=== PATIENT | female | born 1940 | race Caucasian/White ===

== ENCOUNTER 2016-05-06 14:10 | Inpatient (IN) | payer MEDICARE, BC ==
[2016-05-06 14:23] VITALS: BMI 27.3
--- NOTE | 2016-05-06 15:18 | EDPRACDOC ---
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 Medications: Home Medications Digoxin [Lanoxin, Digitek] 0.125 mg PO DAILY 03/08/15 Venlafaxine HCl [Effexor Xr] 150 mg PO DAILY 03/08/15 Albuterol Sulfate [Proventil Hfa] 1 - 2 puff INH Q4H PRN #1 each 03/10/15 Tramadol HCl [Ultram] 50 - 100 mg PO Q4-6H 05/06/16 Flecainide [Tambocor] 100 mg PO BID #60 tablet 05/09/16 Metoprolol Tartrate [Lopressor] 37.5 mg PO BID #60 tablet 05/09/16 Oxycodone Immediate Release [Oxycodone Immediate Release (OxyIR)] 5 mg PO Q4H PRN #20 tablet 05/09/16 Rivaroxaban [Xarelto] 20 mg PO DAILY #30 05/09/16 Allergies/Adverse Reactions: Allergies Allergy/AdvReac Type Severity Reaction Status Date / Time Sulfa (Sulfonamide Allergy Severe Difficulty Verified 05/06/16 15:10 Antibiotics) Breathing [Sulfa(Sulfonamide Antibiotics)] - History of Present Illness Onset: [employer] Duration: Minutes Presyncopal phase:: Reports: None (JUST DOES NOT FEEL WELL) Syncopal phase:: Reports: With standing Postsyncopal phase:: Reports: Rapid recovery Prehospital care: Reports: None History of: Reports: Atrial Fibrillation Associated Signs/Symptoms: Reports: Headache. Denies: Abdominal pain, GI Bleed , Diaphoresis, Diarrhea, Nausea, Palpitations, SOB, Vomiting, Vertigo ED Past Medical History - History Reviewed Yes Nurses notes reviewed and agree except as marked - Patient Medical History Cardiac History: Reports: Atrial Fibrillation, Hypertension, Hypercholesterolemia, Internal Defibrillator, Pacemaker Respiratory History: Reports: Pneumonia (Feb 2015). Denies: Asthma, COPD, Pulmonary Embolism GI/ History: Reports: Kidney Stones. Denies: Diverticulosis Musculoskeletal History: Reports: Arthritis, Osteoarthritis Psychological History: Denies: Depression, Substance Use Disorder Systemic History: Denies: Cancer Surgical History: Reports: Cholecystectomy, Tonsillectomy/Adnoidectomy - Family Medical History Reports: Stroke (MOTHER AND FATHER), Cardiac Disorders (MOTHER). Denies: Hypertension, Diabetes, Cancer - Social Medical History Smoking Status: Never smoker Social History: Denies: Other Substance Use EDM Review of Systems - Review of Systems ROS Negative Except as Marked: Yes All systems reviewed and were negative except as marked - Physical Exam Constitutional: No apparent distress, Alert (Awake), Other (SOMEWHAT VAGUE AND EVASIVE WITH QUESTIONS, BUT DAUGHTERS REPORT SHE IS AT BASELINE) Oriented to: Time, Person, Place Last recorded Vital Signs: Last Vital Signs Temp 97.8 F 05/06/16 14:15 Pulse 88 05/06/16 14:15 Resp 18 05/06/16 14:15 BP 135/55 L 05/06/16 14:15 Pulse Ox 93 05/06/16 14:15 Oxygen Pulse Oxygen Saturation 93 O2 Device Room Air Oxygen Flow Rate Fraction of Inspired Oxygen ( FIO2) - HEENT Head: Normal ( normocephalic) Eye Exam: Normal (PERRL, EOMI, Sclera white) Oropharynx: Normal (Pharynx:Moist without exudate,Gums-no swelling) Tympanic Membrane: Normal ENT EAC: Normal TMJ: Normal Nose: No Symptoms Reported (septum midline) Neck: Normal (FROM, trachea at midline) - Respiratory/Cardiovascular Respiratory: Normal - CTA (BBS clear to auscultation without adventitious sounds ) Cardiovascular: Normal (RRR without murmur, gallop or rub) - GI Auscultation: Normal (NABS) Palpation: Normal (Soft,No rebound or guarding, non distended) Tenderness: Non tender Emmanuel's Sign: Negative - Bladder: Normal - Musculoskeletal Back: Normal (Non-Tender) Extremities: Normal (Normal tone, Pulses 2+ No cyanosis or edema, FROM) - Integumentary Skin: Normal, Warm, Dry Lymphatics: Normal (no adenopathy) - Neurologic Memory Impaired: Normal Motor Function: Normal (Normal tone, Pulses 2+ No cyanosis or edema, FROM) Cranial Nerve: Normal (CN II-X11 intact sensation, strength 5/5) Cerebellar: Normal Mood Description: Normal Thought: Coherent Perception: Normal - Results 05/09/16 04:50 05/09/16 04:50 - EKG EKG #1 EKG Time: 14:28 -: Yes EKG interpreted by me Rate: bpm: 83 [place]: Normal Rhythm: NSR Block: None Hypertrophy: None ST: Nonsp - Diagnostic Imaging Chest Image interpreted by: Radiologist Patient Name: TERENCE SNOW LOC: ED : 1940 AGE: 76 Order Date:05/06/16 Date of Service:09/14 Report # [id number] Ord Physician: Luz Welch MD Exam # [id number] Emergency Physician: Luz Welch MD Exam(s): [id number] RAD/DG CHEST PORTABLE CLINICAL DATA: Dizziness, syncope this morning EXAM: PORTABLE CHEST 1 VIEW COMPARISON: 03/08/2015 FINDINGS: Mild cardiomegaly. Left pacer remains in place, unchanged. No confluent airspace opacities or effusions. No acute bony abnormality. Prior resection of the distal right clavicle. Degenerative changes in the shoulders. IMPRESSION: Mild cardiomegaly. No active disease. Electronically Signed By: Braulio Iglesias M.D. On: 05/06/2016 15:26 Electronically Signed By: Braulio Iglesias MD Electronically Signed Date/Time: [id number] Dictate Date/Time: 05/06/16 1525 Technologist: Loree Johnson Transcribed By: Michael Transcribed Date/Time: 05/06/16 1526 Head Image interpreted by: Radiologist Patient Name: TERENCE SNOW LOC: ED : 1940 AGE: 76 Order Date:05/06/16 Date of Service:09/14 Report # [id number] Ord Physician: Luz Welch MD Exam # [id number] Emergency Physician: Luz Welch MD Exam(s): [id number] CT/CT HEAD W/O CM CLINICAL DATA: Syncopal episode with blunt trauma to the occipital area. EXAM: CT HEAD WITHOUT CONTRAST TECHNIQUE: Contiguous axial images were obtained from the base of the skull through the vertex without intravenous contrast. COMPARISON: Head CT 06/24/2012. FINDINGS: There is no evidence of acute intracranial hemorrhage, mass lesion, brain edema or extra-axial fluid collection. The ventricles and subarachnoid spaces are prominent but stable. There is no CT evidence of acute cortical infarction. There is new encephalomalacia in the left parietal lobe. Intracranial vascular calcifications are noted. There is some soft tissue swelling in the right parietal occipital scalp. Mild right maxillary sinus mucosal thickening is present. The visualized paranasal sinuses, mastoid air cells and middle ears are otherwise clear. The calvarium is intact. IMPRESSION: 1. Right parietal scalp soft tissue injury. No evidence of calvarial fracture or acute intracranial process. 2. Interval development of left parietal encephalomalacia. Electronically Signed By: Jemal Moore M.D. On: 05/06/2016 16:35 Electronically Signed By: Jemal Moore MD Electronically Signed Date/Time: 638 Dictate Date/Time: 05/06/16 1632 Technologist: Amina Gonzales Transcribed By: Michael - Additional Information DEVICE INTERROGATION IS AFRVR AND AFLUT 1:1 AT TIMES OF SYNCOPE. - Departure Disposition: Admit IP To This Hospital Condition: Improved Final Diagnosis: Atrial flutter with rapid ventricular response, Syncope and collapse, Accidental fall Scalp contusion Qualifiers: Encounter type: initial encounter Qualified Code(s): S00.03XA - Contusion of scalp, initial encounter Contusion, chest wall Qualifiers: Encounter type: initial encounter Education/Counseling Given To: Patient, Family Member Education/Counseling Given Regarding: Diagnosis, Treatment Decision to Admit Time: 18:06 Decision to admit date: 05/06/16 Decision to admit: from ED - Physician Consulted Cardiology Time Called: 15:20 Provider Called: Beny Leal Time Lumber Sticker Returned Call: 15:21 (D/W FOR CONSIDERATION OF PACEMAKER INTERROGATION) CARD #2 Time Called: 17:25 Provider Called: Matt Causey Time Lumber Sticker Returned Call: 17:25 (ADD METOPROLOL 25 PO, HOSP ADMIT) Hospitalist Time Called: 18:01 Provider Called: Jimi Campos Time Lumber Sticker Returned Call: 18:06
--- NOTE | 2016-05-06 15:28 | DIRPT ---
CLINICAL DATA: Dizziness, syncope this morning EXAM: PORTABLE CHEST 1 VIEW COMPARISON: 03/08/2015 FINDINGS: Mild cardiomegaly. Left pacer remains in place, unchanged. No confluent airspace opacities or effusions. No acute bony abnormality. Prior resection of the distal right clavicle. Degenerative changes in the shoulders. IMPRESSION: Mild cardiomegaly. No active disease. Electronically Signed By: Braulio Iglesias M.D. On: 05/06/2016 15:26
--- NOTE | 2016-05-06 15:37 | PCM.CARDCO ---
Consultation Date: 05/06/16 Requesting Physician: Luz Welch Cupola Charger Insulation: Beny Leal Consult Reason: Syncope - History of Present Illness She is known to my practice with a history of paroxysmally atrial fibrillation chads 2 Vasc score equals 4 chronic anticoagulant therapy on Xarelto atrial flutter she takes both digoxin and flecainide and has of permanent pacemaker. Her last device check 04/16/2016 showed the presence of mode switching and atrial tachycardia or atrial fibrillation that was brief. There is no ventricular tachyarrhythmia noted. I am told verbally that she had wide complex rhythm number tried access EKG strips from the ambulance. Fortunately she has 2 family members in attendance. She had event about 930 this morning she calls a fall where she went to the floor and was unable to get up. Family member sat with her for several hours with a family could not get her up write the called an ambulance squad. Twice when they tried to get her up at home she loss consciousness when she would stand up. Family tells me at the time this occurred she did have a monitor is a trying to get her out of a bedroom to the [facility]. She tells me she has episodes where she notices her heart racing she had 1 this morning presently she is in sinus rhythm with a normal EKG. When she fell she struck her left chest wall and has a contusion and is tender over this with a mild degree of pain. She has no known coronary artery disease or cardiomyopathy and has been maintained on low-dose flecainide and low-dose digoxin. She has not been seen in my office since March of 2015 but her daughter says she seen by her PCP and had lab work done just prior to the of the year. In general she is able to get up and walk around in the home do her own ADLs and she has family members to supervise 5 nights a week. She has no shortness of breath nausea or vomiting. She has had no GI or bleeding no fever chills no new medications no over the counter medications and her meds are supervised with strip pack. Chief Complaint: Fainted - Past Medical and Surgical History Cardiac History: Reports: Atrial Fibrillation (She has had a normal MPS and chest pain due to costochondritis), Hypertension, Hypercholesterolemia, Internal Defibrillator, Pacemaker Respiratory History: Reports: Pneumonia (Feb 2015). Denies: Asthma, COPD, Pulmonary Embolism GI/ History: Reports: Kidney Stones. Denies: Diverticulosis Systemic History: Denies: Cancer Musculoskeletal History: Reports: Arthritis, Osteoarthritis Psychological History: Denies: Depression, Substance Use Disorder Past Surgical History: Reports: Cholecystectomy, Tonsillectomy/Adnoidectomy Allergies Sulfa (Sulfonamide Antibiotics) [Sulfa(Sulfonamide Antibiotics)] Allergy (Severe , Verified 05/06/16 15:10) Difficulty Breathing Home Medications Flecainide Acetate [Tambocor] 50 mg PO BID 09/28/12 Digoxin [Lanoxin, Digitek] 0.125 mg PO DAILY 03/08/15 Rivaroxaban [Xarelto] 20 mg PO DAILY 03/08/15 Venlafaxine HCl [Effexor Xr] 150 mg PO DAILY 03/08/15 Albuterol Sulfate [Proventil Hfa] 1 - 2 puff INH Q4H PRN #1 each 03/10/15 Tramadol HCl [Ultram] 50 - 100 mg PO Q4-6H 05/06/16 - Social History Travel Outside of [place] in the Last 3 Months?: No Smoking Status: Never smoker Social History: Denies: Substance Use Disorder - Family History Reports: Stroke (MOTHER AND FATHER), Cardiac Disorders (MOTHER). Denies: Hypertension, Diabetes, Cancer - Review of Systems Constitutional: Weakness. negative: Fever - Eyes No Symptoms Reported - Ears No Symptoms Reported - Nose No Symptoms Reported - Mouth Mouth: No Symptoms Reported - Throat/Neck No Symptoms Reported - Respiratory negative: Shortness of Breath - Cardiovascular Chest Pain (Over the site a contusion of her left chest wall next to the pacemaker), Palpitations (Intermittent had an episode early this morning rapid heart rhythm) - Gastrointestinal Gastrointestinal: No Symptoms Reported - Genitourinary Genitourinary: No Symptoms Reported - Neurological No Symptoms Reported - Musculoskeletal Musculoskeletal:: No Symptoms Reported - Integumentary No Symptoms Reported - Allergic/Immunologic No Symptoms Reported - Hematologic No Symptoms Reported - Endocrine No Symptoms Reported - Psychiatric No Symptoms Reported - Physical Exam Constitutional: No apparent distress, Alert (Awake), Other (SOMEWHAT VAGUE AND EVASIVE WITH QUESTIONS, BUT DAUGHTERS REPORT SHE IS AT BASELINE. She appears more frail than I remember her) Oriented to: Time, Person, Place Exam: Last Vital Signs Temp 97.8 F 05/06/16 14:15 Pulse 88 05/06/16 14:15 Resp 18 05/06/16 14:15 BP 135/55 L 05/06/16 14:15 Pulse Ox 93 05/06/16 14:15 Intake & Output 05/05/16 05/06/16 05/06/16 23:59 07:59 15:59 Patient's weight 159 lb - HEENT Head: Normal ( normocephalic, she has mild pallor of her membranes) Eye: Normal (PERRL, EOMI, Sclera white) Oropharynx: Normal (Pharynx:Moist without exudate,Gums-no swelling) Tympanic Membrane: Normal ENT EAC: Normal TMJ: Normal Nose: No Symptoms Reported (septum midline) - Respiratory/Cardiovascular Respiratory: Normal - CTA (BBS clear to auscultation without adventitious sounds ) Cardiovascular: Normal, Other (She has a abrasion and contusion of the left chest wall were she has tenderness to touch. Pacemaker pocket is normal). negative: Systolic murmur, Gallop/S3, Gallop/S4 - GI Auscultation: Normal (NABS) Palpation: Normal (Soft,No rebound or guarding, non distended) Tenderness: Non tender - Musculoskeletal Back: Normal (Non-Tender) Extremities: Normal (Normal tone, Pulses 2+ No cyanosis or edema, FROM), Femoral Pulse, Pedal Pulse. negative: Calf Tenderness, Clubbing, Cyanosis, Edema, Pedal Edema, Radial Pulse - Integumentary Skin: Normal, Warm, Dry Lymphatics: Normal (no adenopathy) - Neurologic Memory Impaired: Normal Cerebellar: Normal Mood Description: Normal Thought: Coherent Perception: Normal - Lab Results Labs are pending, EKG is surprisingly normal she is in sinus rhythm with normal heart rate and blood pressure Case Care Discussed with: Patient, Family Plan: Her problems include known paroxysmally atrial fibrillation on both flecainide and digoxin. Clinically she has done well and has had no recurrences requiring medical care although she has brief episodes of atrial tachycardia on device check. His not appear to be either flight flecainide her digoxin toxic all order levels. She is anticoagulated for now I would continue of providing her x -rays in the emergency room are normal. I think the answer to the question of the etiology of syncope will depend on device check. Her chest pain appears mild atypical related to her chest wall contusion, she does not appear to have acute coronary syndrome troponins will be checked. For now I would continue her current anti rhythmics however depending on the results of the device check we may need to adjust this or consider non drug treatment if she has breakthrough atrial tachyarrhythmias. I called the pacemaker mechanical engineering officer is on the way to the hospital. Case discussed with Dr. Welch who relates that the hospitalist group will be admitting her to [facility].
[2016-05-06 16:33] LABS: PARTIAL THROMB. TIME 27.1 SEC (22-35); PT-INR 1.2
[2016-05-06 16:34] LABS: AUTOMATED BASOPHIL 0.3 % (0-2); AUTOMATED EOSINOPHIL 0.1 % (0-5); AUTOMATED LYMPH 10.2 % (17-44); AUTOMATED MONOCYTE 9.4 % (3-10); MPV 7.9 fL (7.4-10.4)
[2016-05-06 16:37] LABS: BLOOD UREA NITROGEN 19 MG/DL (7-17); CALC CORRECTED 10.5 MG/DL (8.4-10.2); CALCIUM 10.3 MG/DL (8.4-10.2); CALCULATED OSMOLALITY 273 MOs/Kg (270-290); CHLORIDE 108 mEq/L (98-107); GLUCOSE 103 mg/dL (70-99); SODIUM LEVEL 141 mEq/L (137-146); TOTAL PROTEIN 6.7 G/DL (6.3-8.2)
--- NOTE | 2016-05-06 16:38 | DIRPT ---
CLINICAL DATA: Syncopal episode with blunt trauma to the occipital area. EXAM: CT HEAD WITHOUT CONTRAST TECHNIQUE: Contiguous axial images were obtained from the base of the skull through the vertex without intravenous contrast. COMPARISON: Head CT 06/24/2012. FINDINGS: There is no evidence of acute intracranial hemorrhage, mass lesion, brain edema or extra-axial fluid collection. The ventricles and subarachnoid spaces are prominent but stable. There is no CT evidence of acute cortical infarction. There is new encephalomalacia in the left parietal lobe. Intracranial vascular calcifications are noted. There is some soft tissue swelling in the right parietal occipital scalp. Mild right maxillary sinus mucosal thickening is present. The visualized paranasal sinuses, mastoid air cells and middle ears are otherwise clear. The calvarium is intact. IMPRESSION: 1. Right parietal scalp soft tissue injury. No evidence of calvarial fracture or acute intracranial process. 2. Interval development of left parietal encephalomalacia. Electronically Signed By: Jemal Moore M.D. On: 05/06/2016 16:35
[2016-05-06] MEDS ORDERED: METOPROLOL TARTRATE 25 MG TAB PO ONE (17:26)
[2016-05-06] MEDS ORDERED: ALBUTEROL 6.7 GM MDI INH PRN (18:25)
[2016-05-06] MEDS ORDERED: ONDANSETRON HCL 4 MG/2 ML VIAL IV PRN (18:26)
[2016-05-06] MEDS ORDERED: OXYCODONE HCL 5 MG TABLET PO PRN (18:26)
[2016-05-06] MEDS ORDERED: ACETAMINOPHEN 325 MG/TAB TABLET PO PRN (18:26)
[2016-05-06] MEDS ORDERED: ALBUTEROL 6.7 GM MDI INH SCH (18:46)
--- NOTE | 2016-05-06 19:19 | HISTPHYS ---
- Chief Complaint Syncope - History of Present Illness This is a pleasant 76-year-old female with a history of paroxysmal atrial fibrillation on flecainide and digoxin, as well as permanent pacemaker who was seen at the cardiology clinic in town is being admitted to the hospital due to syncope. Patient and her daughter gives a history in the emergency department this evening, tell me that she has overall been in his usual state of health, but in the last 3 or 4 weeks have been noticing more and more dizziness sometimes associated with palpitations. The patient is quite demented and so gives contradictory statements at times. However, they note that besides the slight dizziness and possible palpitations, she has not had any fevers, chills, nausea, vomiting, chest pain, diarrhea, changes in bowel or bladder habits. No rashes on the skin, no new medications and no sick contacts. Patient has already been seen in the emergency department in consultation by Dr. Leal, and had her pacemaker interrogated. The hospitalist group was asked to admit the patient to the hospital. - Medical History Cardiac History: Reports: Atrial Fibrillation, Hypertension, Hypercholesterolemia, Internal Defibrillator, Pacemaker Respiratory History: Reports: Pneumonia (NEW FEB 2015). Denies: Asthma, COPD, Pulmonary Embolism GI/ History: Reports: Kidney Stones. Denies: Diverticulosis Musculoskeletal History: Reports: Arthritis, Osteoarthritis Systemic History: Denies: Cancer Psychological History: Denies: Depression, Substance Use Disorder - Surgical History Reports: Cholecystectomy, Tonsillectomy/Adnoidectomy - Medictions/Allergies Allergies Sulfa (Sulfonamide Antibiotics) [Sulfa(Sulfonamide Antibiotics)] Allergy (Severe , Verified 05/06/16 15:10) Difficulty Breathing Home Medications Flecainide Acetate [Tambocor] 50 mg PO BID 09/28/12 Digoxin [Lanoxin, Digitek] 0.125 mg PO DAILY 03/08/15 Rivaroxaban [Xarelto] 20 mg PO DAILY 03/08/15 Venlafaxine HCl [Effexor Xr] 150 mg PO DAILY 03/08/15 Albuterol Sulfate [Proventil Hfa] 1 - 2 puff INH Q4H PRN #1 each 03/10/15 Tramadol HCl [Ultram] 50 - 100 mg PO Q4-6H 05/06/16 - Family History Reports: Stroke (MOTHER AND FATHER), Cardiac Disorders (MOTHER). Denies: Hypertension, Diabetes, Cancer - Social History Smoking Status: Never smoker Social History: Denies: Substance Use Disorder - Review of Systems Yes All systems reviewed and were negative except as marked (And as mentioned in the history of present illness above.) - Physical Exam Vital Signs: Initial Vitals Temperature 97.8 F 05/06/16 14:15 Pulse Rate 88 05/06/16 14:15 Respiratory Rate 18 05/06/16 14:15 Blood Pressure 135/55 L 05/06/16 14:15 Pulse Oxygen Saturation 93 05/06/16 14:15 Constitutional: Alert (Awake, Fully oriented, well appearing. No apparent distress) Oriented to: Time, Person, Place Exam: She has a slight contusion a left upper chest wall which is tender to palpation. - HEENT Head: Normal (normocephalic,atraumatic, trachea midline) Eye: Normal (EOMI, Sclera white) Oropharynx: Normal (moist) Nose: No Symptoms Reported (without discharge or bleeding) Respiratory: Normal - CTA (Clear to auscultation bilaterally, no wheezing,rales or rhonchi. No use of accessory muscles) Cardiovascular: Normal (RRR, no murmurs, rubs or gallops) - GI Palpation: Normal (soft, non distended and nontender) - Musculoskeletal Extremities: Normal (normal tone, no cyanosis or edema) - Integumentary Skin: Normal (no rashes or lesions) - Neurologic Cranial Nerve: Normal (CN II-XII intact) Mood Description: Normal (Fully oriented and appropiate affect) - Focused CV Perfusion Exam Vital Signs: Last Vital Signs Temp 97.8 F 05/06/16 14:15 Pulse 88 05/06/16 18:41 Resp 20 05/06/16 18:41 BP 132/63 05/06/16 18:41 Pulse Ox 96 05/06/16 18:41 - Lab Results Laboratory Tests 05/06/16 05/06/16 05/06/16 16:10 16:10 16:10 WBC 12.7 H Hgb 13.5 Hct 40.7 Plt Count 198 INR 1.2 Potassium 4.0 BUN 19 H Creatinine 0.90 Magnesium 2.20 Total Bilirubin 0.5 AST 26 ALT 33 Troponin I 0.04 Kda-D-Pkxwpyiabut Pept 1330 Digoxin 05/06/16 16:10 WBC Hgb Hct Plt Count INR Potassium BUN Creatinine Magnesium Total Bilirubin AST ALT Troponin I Mte-M-Ogwbojvvjsw Pept Digoxin 0.50 L - Assessment (1) Atrial flutter with rapid ventricular response I48.92 - UNSPECIFIED ATRIAL FLUTTER Acute Patient has already been seen by Cardiology in the emergency department. Also had her pacemaker interrogated, there is not seem to be any malfunction. Will continue her home flecainide and digoxin, as well as her anticoagulation. Cardiology recommends metoprolol 25 mg p.o. twice daily, and this has been initiated. (2) Contusion, chest wall S20.219A - CONTUSION OF UNSPECIFIED FRONT WALL OF THORAX, INIT ENCNTR Acute Qualifiers: Encounter type: initial encounter Due to syncope and fall earlier today. (3) Scalp contusion S00.03XA - CONTUSION OF SCALP, INITIAL ENCOUNTER Acute Qualifiers: Encounter type: initial encounter Qualified Code(s): S00.03XA - Contusion of scalp, initial encounter Thankfully, no intracranial bleed or other pathology. (4) Hypertension I10 - ESSENTIAL (PRIMARY) HYPERTENSION Chronic Qualifiers: Hypertension type: essential hypertension Qualified Code(s): I10 - Essential (primary) hypertension Continue outpatient medications - Plan Patient is being admitted to the hospital due to her uncontrolled atrial flutter and fibrillation, she has been started on p.o. metoprolol, and we followed in the hospital by Cardiology. Will allow her to eat, and have Physical therapy see the patient in the morning to ensure that there is no other ambulatory dysfunction. Case Care Discussed with: Patient, Family, Nursing Staff Total Time: 42
[2016-05-06 19:37] LABS: CA OXALATE 1+; LEUKOCYTES/URINE TRACE (NEGATIVE); NITRITE/URINE NEG (NEGATIVE); RBC/URINE TNTC (0-5); URINE OCCULT BLOOD 1+ (NEG/TRACE)
[2016-05-06] MEDS ORDERED: FLECAINIDE ACETATE 50 MG PO SCH (21:00)
[2016-05-06] MEDS: TRAMADOL HCL 50 MG TAB PO SCH (21:06)
[2016-05-06] MEDS: FLECAINIDE 100 MG TAB PO SCH (21:06)
[2016-05-06] MEDS: METOPROLOL TARTRATE 25 MG TAB PO SCH (21:06)
[2016-05-06] MEDS ORDERED: Vaccine Screening Complete SCH (22:00)
[2016-05-07] MEDS: TRAMADOL HCL 50 MG TAB PO SCH ×4 (03:04→20:52)
[2016-05-07 05:33] LABS: MPV 7.7 fL (7.4-10.4)
[2016-05-07 05:45] LABS: BLOOD UREA NITROGEN 23 MG/DL (7-17); CALCIUM 10.1 MG/DL (8.4-10.2); CALCULATED OSMOLALITY 272 MOs/Kg (270-290); CHLORIDE 103 mEq/L (98-107); GLUCOSE 89 mg/dL (70-99); SODIUM LEVEL 140 mEq/L (137-146)
--- NOTE | 2016-05-07 07:39 | PCM.CARD ---
- Subjective Reason for visit: Atrial fibrillation and flutter Current Assessment: No New Symptoms. negative: Chest Pain, Dizzines, Nausea, Palpitations, Shortness of Breath, Syncope, Vomiting Vital Signs: Last Vital Signs Temp 97.8 F 05/07/16 05:58 Pulse 91 05/07/16 05:58 Resp 20 05/07/16 05:58 BP 115/55 L 05/07/16 05:58 Pulse Ox 93 05/07/16 05:58 Respiratory: Normal - CTA Jugular Vein Distention: None Pulse Rhythm: Regular EKG Rhythm: Sinus Rhythm (With appropriate dual-chamber pacing predominately atrial) EKG Ectopy: negative: Runs >10 beats (No recurrent atrial fibrillation No edema) Lab/DI Results Reviewed: Her pacemaker is interrogated yesterday afternoon, her atrial fibrillation burden is approximately 2.5% and she had episode just a of rapid atrial fibrillation rates in the 130s to 140s as well as an episode of atrial tachycardia or atypical atrial flutter with a heart rate in the 160s. She has a backup pacemaker so she required additional suppressant therapy and was started on a beta-lex. She has no evidence of proarrhythmia from her flecainide and I will increase her dose after seeing her baseline blood level as opposed to switching anti rhythmic treatment. It would be uncommon to have syncope due to atrial arrhythmia like this however it appears to be the case in this individual. - Assessment/Plan (1) Atrial flutter with rapid ventricular response Acute I48.92 - UNSPECIFIED ATRIAL FLUTTER Comment/Plan: She had breakthrough atrial fibrillation with rapid response, she has of appropriate functioning pacemaker normal, will add on beta-lex for rate control and increase the dose of her flecainide awaiting a level. At this time I would not change anti rhythmics if she clinically breaks through amiodarone be appropriate. In general I think she is a poor candidate for EP ablation. She remain anticoagulated. Her presentation is atypical with syncope without documented hypotension. (2) Contusion, chest wall Acute S20.219A - CONTUSION OF UNSPECIFIED FRONT WALL OF THORAX, INIT ENCNTR initial encounter Comment/Plan: serial troponin are normal, improved by examination (3) Syncope and collapse Acute R55 - SYNCOPE AND COLLAPSE Comment/Plan: IMPRESSION: CT head 1. Right parietal scalp soft tissue injury. No evidence of calvarial fracture or acute intracranial process. 2. Interval development of left parietal encephalomalacia. Presentation is very atypical with syncope without hypotension clinically after assume it was due to rapid rate in the treatment of it is rate control with beta -lex digoxin and anti rhythmic therapy to maintain sinus rhythm. No indication of pacemaker failure (4) Hypertension Chronic I10 - ESSENTIAL (PRIMARY) HYPERTENSION essential hypertension I10 - Essential (primary) hypertension Comment/Plan: Stable continue beta-lex
[2016-05-07] MEDS ORDERED: PNEUMOCOCCAL 0.5 ML VIAL IM ONE (08:00)
[2016-05-07] MEDS ORDERED: Non-Formulary Medication ITEM (Rivaroxaban [Xarelto] 20 MG) PO SCH (09:00)
[2016-05-07] MEDS: FLECAINIDE 100 MG TAB PO SCH ×3 (09:06→20:53)
[2016-05-07] MEDS: RIVAROXABAN 10 MG TAB PO SCH (09:07)
[2016-05-07] MEDS: DIGOXIN 0.125 MG TAB PO SCH (09:07)
[2016-05-07] MEDS: METOPROLOL TARTRATE 25 MG TAB PO SCH ×2 (09:07→22:45)
[2016-05-07] MEDS: VENLAFAXINE XR 150 MG CAP PO SCH (09:07)
[2016-05-07] MEDS: NS 500 ML IV SCH (12:07)
--- NOTE | 2016-05-07 17:56 | GENMEDPROG ---
Subjective Note: Patient admitted overnight with a syncopal episode felt brought on by atrial fibrillation. She was seen in consultation by Dr. Linda Sandhu. He has added metoprolol to her medical regimen. Unfortunately today her blood pressure dropped and we had to give her a fluid bolus after receiving metoprolol. Since then she has remained relatively stable. Notes Reviewed: Yes: Events from last night noted and discussed with Clinical Staff Current Medication List: Reviewed Currently: Reports: SOB, Constipation DVT Prophylaxis: Yes - Physical Examination Vital Signs and I&O: Last Vital Signs Temp 97.8 F 05/07/16 16:24 Pulse 72 05/07/16 16:24 Resp 20 05/07/16 16:24 BP 97/55 L 05/07/16 16:24 Pulse Ox 96 05/07/16 16:24 Oxygen Pulse Oxygen Saturation 96 O2 Device Room Air Oxygen Flow Rate Fraction of Inspired Oxygen ( FIO2) Intake & Output 05/04/16 05/05/16 05/06/16 05/07/16 23:59 23:59 23:59 23:59 Intake Total 480 Output Total 550 Balance -70 Patient's weight 75.892 kg 76.317 kg General: Alert, Oriented x3, No acute distress, Well appearing, Well nourished HEENT: Normal (Normocephalic, atraumatic;EOMI.Sclera white, Nares patent, without discharge or bleeding. No oropharyngeal lesions or erythema. Mucous membranes are dry.) Neck: Non-tender, Full range of motion, Normal Trachea alignment, Normal inspection (No cervical lymphadenopathy. No supraclavicular lymphadenopathy.), No Masses palpable, Supple Lymphatics: Normal (No lymph node swelling or pain.) Respiratory: Normal - CTA Cardiovascular: Normal S1, No Gallops,Rubs/Murmurs, Normal S2, Good Pedal Pulses (DP pulses 2+ bilaterally), Irregular GI: Normal bowel sounds (normal active sounds), Soft (non-distended), Non tender , No hepatospenomegaly, No masses Extremities/Musculoskeletal: Normal pulses (DP pulses 2+ bilaterally) Skin: Warm,Dry and Intact, No rashes, No significant lesion Neurological: Strength at 5/5 X4 ext (Motor 5/5 throughout.), Normal tone, Cranial nerves 3-12 NL ( 2-12 grossly intact.) Lab/DI/Studies Reviewed: Abnormal Lab Results 05/06/16 05/07/16 05/07/16 19:13 05:05 05:05 RBC 4.17 L BUN 23 H Creatinine 1.10 H Estimated GFR (MDRD) 48 L Urine Protein 2+ H Urine Occult Blood 1+ H Ur Leukocyte Esterase Trace H Urine RBC Tntc H Urine WBC 5-10 H Urine Mucus Mod H - Assessment (1) Atrial flutter with rapid ventricular response Chronic I48.92 - UNSPECIFIED ATRIAL FLUTTER Comment/Plan: Cardiology started patient on metoprolol 37.5 p.o. twice daily. Her heart rate did slow down however her blood pressure dropped as well. She required a 500 mL fluid bolus. (2) Contusion, chest wall Acute S20.219A - CONTUSION OF UNSPECIFIED FRONT WALL OF THORAX, INIT ENCNTR Qualifiers: Encounter type: initial encounter Comment/Plan: Due to syncope and fall earlier yesterday. (3) Scalp contusion Acute S00.03XA - CONTUSION OF SCALP, INITIAL ENCOUNTER Qualifiers: Encounter type: initial encounter Qualified Code(s): S00.03XA - Contusion of scalp, initial encounter Comment/Plan: Thankfully, no intracranial bleed or other pathology. (4) Hypertension Chronic I10 - ESSENTIAL (PRIMARY) HYPERTENSION Qualifiers: Hypertension type: essential hypertension Qualified Code(s): I10 - Essential (primary) hypertension Comment/Plan: Continue outpatient medications - Plan Will discuss with Cardiology regarding adjustment of beta-lex. Will continue to monitor patient over the next 24-48 hours. Disposition Plan: Hopefully home soon Case Care Discussed with: Patient, Consultants, Family, Nursing Staff Education/Counseling Given To: Patient, Family Member Education/Counseling Given Regarding: Diagnosis, Treatment, Prognosis, Follow Up , Disposition Plan Total Time: 45 minutes Critical Care: No Couseling Time (>50% in counseling/coordination): No
[2016-05-08] MEDS: TRAMADOL HCL 50 MG TAB PO SCH ×4 (01:54→19:46)
[2016-05-08 04:45] LABS: MPV 7.7 fL (7.4-10.4)
[2016-05-08 05:15] LABS: BLOOD UREA NITROGEN 20 MG/DL (7-17); CALCIUM 9.7 MG/DL (8.4-10.2); CALCULATED OSMOLALITY 271 MOs/Kg (270-290); CHLORIDE 103 mEq/L (98-107); GLUCOSE 86 mg/dL (70-99); SODIUM LEVEL 140 mEq/L (137-146)
--- NOTE | 2016-05-08 07:58 | PCM.CARD ---
- Subjective Reason for visit: For atrial fibrillation and atypical atrial flutter with rapid rates Current Assessment: No New Symptoms. negative: Chest Pain, Nausea, Orthopnea, Palpitations, Shortness of Breath, Syncope, Vomiting Vital Signs: Last Vital Signs Temp 97.7 F 05/08/16 04:00 Pulse 60 05/08/16 06:00 Resp 18 05/08/16 04:00 BP 108/59 L 05/08/16 04:00 Pulse Ox 93 05/08/16 04:00 Selected Entries 05/07/16 05/07/16 05/07/16 00:32 05:58 08:16 Blood Pressure 129/59 L 115/55 L 118/54 L 05/07/16 05/07/16 05/07/16 12:00 13:05 16:24 Blood Pressure 78/40 L 103/47 L 97/55 L 05/07/16 05/07/16 05/07/16 20:10 22:45 23:42 Blood Pressure 114/61 114/60 116/60 05/08/16 04:00 Blood Pressure 108/59 L Laboratory Tests 05/06/16 05/06/16 05/06/16 16:10 20:10 23:25 Hgb Potassium Troponin I 0.04 0.06 0.05 05/07/16 05/07/16 05:05 05:05 Hgb 12.7 Potassium 3.8 Troponin I Respiratory: Normal - CTA Jugular Vein Distention: None Pulse Rhythm: Regular EKG Rhythm: Paced Heart Sounds: S1 & S2 (no edema) Lab/DI Results Reviewed: Laboratory Tests 05/08/16 04:20 Potassium 3.8 Creatinine 1.00 - Assessment/Plan (1) Atrial flutter with rapid ventricular response Chronic I48.92 - UNSPECIFIED ATRIAL FLUTTER Present on Admission: Yes Comment/Plan: Stable, with suppressant treatment increase the dose of flecainide she maintained sinus rhythm atrial paced in no recurrent arrhythmias. Yesterday, her blood pressure was mildly decreased today she is hemodynamically stable without orthostatic hypotension. She remain anticoagulated (2) Contusion, chest wall Acute S20.219A - CONTUSION OF UNSPECIFIED FRONT WALL OF THORAX, INIT ENCNTR initial encounter Comment/Plan: Stable, presently not a problem (3) Syncope and collapse Acute R55 - SYNCOPE AND COLLAPSE Present on Admission: Yes Comment/Plan: Uncommon however it appears to be due to rapid atrial rhythms with no evidence of ventricular tachycardia as toxicity of flecainide and no evidence of bradycardia with normal pacemaker function. Her blood pressure was low yesterday but I do not think that hypotension was the precipitant. (4) Hypertension Chronic I10 - ESSENTIAL (PRIMARY) HYPERTENSION essential hypertension I10 - Essential (primary) hypertension Comment/Plan: Stable continue low-dose beta-lex (5) Pacemaker Acute Z95.0 - PRESENCE OF CARDIAC PACEMAKER Comment/Plan: Stable recently interrogated good device check
[2016-05-08] MEDS: DIGOXIN 0.125 MG TAB PO SCH (09:22)
[2016-05-08] MEDS: VENLAFAXINE XR 150 MG CAP PO SCH (09:22)
[2016-05-08] MEDS: METOPROLOL TARTRATE 25 MG TAB PO SCH ×2 (09:22→19:46)
[2016-05-08] MEDS: FLECAINIDE 100 MG TAB PO SCH ×2 (09:23→19:46)
[2016-05-08] MEDS: RIVAROXABAN 10 MG TAB PO SCH (09:24)
[2016-05-08] MEDS: NS 500 ML IV SCH (09:31)
--- NOTE | 2016-05-08 14:14 | GENMEDPROG ---
Subjective Note: Patient doing well this morning. She has had no further episodes of arrhythmia. I have discussed her case with Dr. Leal would like her to get up and walk around will see how she does with ambulation today. Notes Reviewed: Yes: Events from last night noted and discussed with Clinical Staff Current Medication List: Reviewed Currently: Reports: SOB, Constipation DVT Prophylaxis: Yes - Physical Examination Vital Signs and I&O: Last Vital Signs Temp 97.8 F 05/08/16 12:05 Pulse 60 05/08/16 12:37 Resp 18 05/08/16 12:05 BP 120/66 05/08/16 12:05 Pulse Ox 90 L 05/08/16 12:05 Oxygen Pulse Oxygen Saturation 90 O2 Device Room Air Oxygen Flow Rate Fraction of Inspired Oxygen ( FIO2) Intake & Output 05/05/16 05/06/16 05/07/16 05/08/16 23:59 23:59 23:59 23:59 Intake Total 720 200 Output Total 550 700 Balance 170 -500 Patient's weight 75.892 kg 76.317 kg 77.167 kg General: Alert, Oriented x3, No acute distress, Well appearing, Well nourished HEENT: Normal (Normocephalic, atraumatic;EOMI.Sclera white, Nares patent, without discharge or bleeding. No oropharyngeal lesions or erythema. Mucous membranes are dry.) Neck: Non-tender, Full range of motion, Normal Trachea alignment, Normal inspection (No cervical lymphadenopathy. No supraclavicular lymphadenopathy.), No Masses palpable, Supple Lymphatics: Normal (No lymph node swelling or pain.) Respiratory: Normal - CTA Cardiovascular: Normal S1, No Gallops,Rubs/Murmurs, Normal S2, Good Pedal Pulses (DP pulses 2+ bilaterally), Irregular GI: Normal bowel sounds (normal active sounds), Soft (non-distended), Non tender , No hepatospenomegaly, No masses Extremities/Musculoskeletal: Normal pulses (DP pulses 2+ bilaterally) Skin: Warm,Dry and Intact, No rashes, No significant lesion Neurological: Strength at 5/5 X4 ext (Motor 5/5 throughout.), Normal tone, Cranial nerves 3-12 NL ( 2-12 grossly intact.) Lab/DI/Studies Reviewed: Abnormal Lab Results 05/08/16 05/08/16 04:20 04:20 MCHC 32.7 L BUN 20 H Estimated GFR (MDRD) 54 L - Assessment (1) Atrial flutter with rapid ventricular response Chronic I48.92 - UNSPECIFIED ATRIAL FLUTTER Comment/Plan: Patient appears to have tolerated the new dose of metoprolol. We are going to continue her at 37.5 p.o. twice daily. Will have the patient ambulate in the halls today. If she does well consider discharge in a.m.. (2) Contusion, chest wall Acute S20.219A - CONTUSION OF UNSPECIFIED FRONT WALL OF THORAX, INIT ENCNTR Qualifiers: Encounter type: initial encounter Comment/Plan: Improving. (3) Scalp contusion Acute S00.03XA - CONTUSION OF SCALP, INITIAL ENCOUNTER Qualifiers: Encounter type: initial encounter Qualified Code(s): S00.03XA - Contusion of scalp, initial encounter Comment/Plan: Thankfully, no intracranial bleed or other pathology. (4) Hypertension Chronic I10 - ESSENTIAL (PRIMARY) HYPERTENSION Qualifiers: Hypertension type: essential hypertension Qualified Code(s): I10 - Essential (primary) hypertension Comment/Plan: Continue outpatient medications - Plan I have discussed with Dr. Leal from Cardiology. Continue present beta- lex dose. Plan discharge in a.m. if patient does okay with ambulation. Disposition Plan: Hopefully home soon Case Care Discussed with: Patient, Consultants, Family, Nursing Staff Education/Counseling Given To: Patient, Family Member Education/Counseling Given Regarding: Diagnosis, Treatment, Prognosis, Follow Up , Disposition Plan Total Time: 45 minutes Critical Care: No Couseling Time (>50% in counseling/coordination): No
[2016-05-09] MEDS: TRAMADOL HCL 50 MG TAB PO SCH ×2 (01:19→07:50)
[2016-05-09 04:15] VITALS: TEMP 97.6
[2016-05-09 05:16] LABS: MPV 7.7 fL (7.4-10.4)
[2016-05-09 05:24] LABS: BLOOD UREA NITROGEN 17 MG/DL (7-17); CALCIUM 9.5 MG/DL (8.4-10.2); CALCULATED OSMOLALITY 268 MOs/Kg (270-290); CHLORIDE 105 mEq/L (98-107); GLUCOSE 91 mg/dL (70-99); SODIUM LEVEL 138 mEq/L (137-146)
[2016-05-09] MEDS: RIVAROXABAN 10 MG TAB PO SCH (07:46)
[2016-05-09] MEDS: METOPROLOL TARTRATE 25 MG TAB PO SCH (07:46)
[2016-05-09] MEDS: VENLAFAXINE XR 150 MG CAP PO SCH (07:46)
[2016-05-09] MEDS: FLECAINIDE 100 MG TAB PO SCH (07:46)
[2016-05-09] MEDS: DIGOXIN 0.125 MG TAB PO SCH (07:46)
--- NOTE | 2016-05-09 07:50 | PCM.CARD ---
- Subjective Reason for visit: For paroxysmally atrial fibrillation and atypical atrial flutter Current Assessment: No New Symptoms (She requests to be discharged home today). negative: Chest Pain, Dizzines, Nausea, Palpitations, Shortness of Breath, Syncope Vital Signs: Last Vital Signs Temp 97.6 F 05/09/16 04:00 Pulse 71 05/09/16 06:00 Resp 18 05/09/16 04:00 BP 117/57 L 05/09/16 04:00 Pulse Ox 92 05/09/16 04:00 Respiratory: Normal - CTA Jugular Vein Distention: None Pulse Rhythm: Regular EKG Rhythm: Paced (Predominantly atrial paced rhythm) EKG Ectopy: negative: Runs >10 beats (No recurrent atrial fibrillation or flutter) Heart Sounds: S1 & S2. negative: S3, Murmur (No edema) Lab/DI Results Reviewed: Laboratory Tests 05/06/16 20:10 Flecainide Pending - Assessment/Plan (1) Atrial flutter with rapid ventricular response Chronic I48.92 - UNSPECIFIED ATRIAL FLUTTER Present on Admission: Yes Comment/Plan: Stable improved no recurrence on a higher dose of flecainide as well as digoxin and beta-lex suppressant therapy with back ground pacemaker activity to prevent bradycardia. She will continue her current beta-lex flecainide and anticoagulant. (2) Syncope and collapse Acute R55 - SYNCOPE AND COLLAPSE Present on Admission: Yes Comment/Plan: Improved no recurrence rhythm is stable and she appears be one of the unusual group of individuals 1-2% with paroxysmal atrial fibrillation who experienced syncope (3) Hypertension Chronic I10 - ESSENTIAL (PRIMARY) HYPERTENSION essential hypertension I10 - Essential (primary) hypertension Comment/Plan: Stable tolerating her beta-lex (4) Pacemaker Acute Z95.0 - PRESENCE OF CARDIAC PACEMAKER Comment/Plan: Stable function interrogated during this hospital stay
[2016-05-09 08:04] VITALS: BP 122/54
--- NOTE | 2016-05-09 10:25 | PCM.DCS92 ---
- Final/Secondary Discharge Diagnosis (1) Atrial flutter with rapid ventricular response Chronic I48.92 - UNSPECIFIED ATRIAL FLUTTER Present on Admission: Yes Comment: Patient appears to have tolerated the new dose of metoprolol. We are going to continue her at 37.5 p.o. twice daily. Will have the patient ambulate in the halls today. If she does well consider discharge in a.m.. (2) Contusion, chest wall Acute S20.219A - CONTUSION OF UNSPECIFIED FRONT WALL OF THORAX, INIT ENCNTR initial encounter Comment: Improving. (3) Scalp contusion Acute S00.03XA - CONTUSION OF SCALP, INITIAL ENCOUNTER initial encounter S00.03XA - Contusion of scalp, initial encounter Comment: Thankfully, no intracranial bleed or other pathology. (4) Hypertension Chronic I10 - ESSENTIAL (PRIMARY) HYPERTENSION essential hypertension I10 - Essential (primary) hypertension Comment: Continue outpatient medications Discharge Disposition: Discharge w/ Home Health (PT) Discharge Condition: Improved Cognitive Discharge Status: Unimpaired Fuctional Discharge Status: Independent Physician Follow up/Referrals: Madhuri Stuart NP [Primary Care Provider] - 05/21/16 3:45 pm Jerzy Gomez MD [Staff Physician] - 05/21/16 9:15 am Home Medications / New Prescriptions: New Metoprolol Tartrate [Lopressor] 37.5 mg PO BID #60 tablet Oxycodone Immediate Release [Oxycodone Immediate Release (OxyIR)] 5 mg PO Q4H PRN #20 tablet PRN Reason: Moderate To Severe Pain Flecainide [Tambocor] 100 mg PO BID #60 tablet Continue Digoxin [Lanoxin, Digitek] 0.125 mg PO DAILY Venlafaxine HCl [Effexor Xr] 150 mg PO DAILY Albuterol Sulfate [Proventil Hfa] 1 - 2 puff INH Q4H PRN #1 each PRN Reason: Shortness Of Breath Tramadol HCl [Ultram] 50 - 100 mg PO Q4-6H Rivaroxaban [Xarelto] 20 mg PO DAILY #30 Discontinued Flecainide Acetate [Tambocor] 50 mg PO BID Discharge Home Medication List Digoxin [Lanoxin, Digitek] 0.125 mg PO DAILY 03/08/15 [History Confirmed ] Venlafaxine HCl [Effexor Xr] 150 mg PO DAILY 03/08/15 [History Confirmed ] Albuterol Sulfate [Proventil Hfa] 1 - 2 puff INH Q4H PRN #1 each 03/10/15 [Rx Confirmed 05/06/16] Tramadol HCl [Ultram] 50 - 100 mg PO Q4-6H 05/06/16 [History Confirmed 05/06/16] Flecainide [Tambocor] 100 mg PO BID #60 tablet 05/09/16 [Rx] Metoprolol Tartrate [Lopressor] 37.5 mg PO BID #60 tablet 05/09/16 [Rx] Oxycodone Immediate Release [Oxycodone Immediate Release (OxyIR)] 5 mg PO Q4H PRN #20 tablet 05/09/16 [Rx] Rivaroxaban [Xarelto] 20 mg PO DAILY #30 05/09/16 [Rx Confirmed 05/06/16] New Discharge Medications (Rx) Flecainide [Tambocor] 100 mg PO BID #60 tablet 05/09/16 [Rx] Metoprolol Tartrate [Lopressor] 37.5 mg PO BID #60 tablet 05/09/16 [Rx] Oxycodone Immediate Release [Oxycodone Immediate Release (OxyIR)] 5 mg PO Q4H PRN #20 tablet 05/09/16 [Rx] Rivaroxaban [Xarelto] 20 mg PO DAILY #30 05/09/16 [Rx] O2 Device: Room Air Diet at Discharge: Heart Healthy Activity: No Restrictions, As Tolerated Call Office For: Worsening Symptoms, Fever over 100.5, Pain Uncontrolled By Meds - DC Summary Notes HPI/Notes: She is known to my practice with a history of paroxysmally atrial fibrillation chads 2 Vasc score equals 4 chronic anticoagulant therapy on Xarelto atrial flutter she takes both digoxin and flecainide and has of permanent pacemaker. Her last device check 04/16/2016 showed the presence of mode switching and atrial tachycardia or atrial fibrillation that was brief. There is no ventricular tachyarrhythmia noted. I am told verbally that she had wide complex rhythm number tried access EKG strips from the ambulance. Fortunately she has 2 family members in attendance. She had event about 930 this morning she calls a fall where she went to the floor and was unable to get up. Family member sat with her for several hours with a family could not get her up write the called an ambulance squad. Twice when they tried to get her up at home she loss consciousness when she would stand up. Family tells me at the time this occurred she did have a monitor is a trying to get [place] She tells me she has episodes where she notices her heart racing she had 1 this morning presently she is in sinus rhythm with a normal EKG. When she fell she struck her left chest wall and has a contusion and is tender over this with a mild degree of pain. She has no known coronary artery disease or cardiomyopathy and has been maintained on low-dose flecainide and low-dose digoxin. She has not been seen in my office since March of 2015 but her daughter says she seen by her PCP and had lab work done just prior to the 1st of the year. In general she is able to get up and walk around in the home do her own ADLs and she has family members to supervise 5 nights a week. She has no shortness of breath nausea or vomiting. She has had no GI or bleeding no fever chills no new medications no over the counter medications and her meds are supervised with strip pack. Hospital Course Note:: Discharge summary on patient named TERENCE SNOW admitted to [facility] on 05/06/16 by Jimi Campos MD. Date of discharge is []. Very pleasant 76-year-old female with a complex atrial fibrillation who presented to the hospital after a fall at home. She fell at home was unable to get up after several hours of being on the ground family attempted to try to pick her up or help her up and she probably passed out twice in that attempt. EMS was then activated and the patient came into the emergency department for further evaluation and management. Upon arrival to the emergency department she was found to be in atrial fibrillation with rapid ventricular response. Dr. Leal was consulted and her medications were adjusted with an increased dose of her flecainide as well as addition of metoprolol. The patient tolerated that well. She has ambulated in the [place] without problems with her heart rate. At this point patient has reached maximum benefit of hospitalization. She is stable for discharge home. She will have home health physical therapy at discharge. - Physical Exam Vital Signs: Last Vital Signs Temp 97.6 F 05/09/16 08:00 Pulse 73 05/09/16 08:00 Resp 18 05/09/16 08:00 BP 122/54 L 05/09/16 08:00 Pulse Ox 92 05/09/16 08:00 Oxygen Pulse Oxygen Saturation 92 O2 Device Room Air Oxygen Flow Rate Fraction of Inspired Oxygen ( FIO2) Constitutional: Alert (Awake, Fully oriented, well appearing. No apparent distress) Oriented to: Time, Person, Place - HEENT Head: Normal (normocephalic,atraumatic, trachea midline) Eye: Normal (EOMI, Sclera white) Oropharynx: Normal (moist) Nose: No Symptoms Reported (without discharge or bleeding) - Respiratory/Cardiovascular Respiratory: Normal - CTA Cardiovascular: Normal (RRR , Normal S1, S2. No murmurs, rubs, or gallops. PMI non-displaced. Carotids: no carotid bruits. No bradycardia or tachycardia. DP pulses 2+ bilaterally.) - GI Auscultation: Normal (normal active sounds) Palpation: Normal (soft, non distended and nontender) Tenderness: Non tender (No rebound or guarding) - Musculoskeletal Extremities: Normal (normal tone, no cyanosis or edema) - Integumentary Lymphatics: Normal (No lymph node swelling or pain.) - Neurologic Memory Impaired: Normal Motor Function: Normal (Motor 5/5 throughout.Normal tone, Pulses 2+ No cyanosis or edema, FROM) Cranial Nerve: Normal (CN II-XII intact sensation, strength 5/5) Cerebellar: Normal (Babinski: toes downgoing bilaterally. Intact Finger to nose. Sensory grossly intact to light touch. Intact rapid alternating movements bilaterally. No pronator drift.) Mood Description: Normal (Fully oriented and appropiate affect) Perception: Normal (Normal and appropriate affect.) - Other Exam Other Exam Findings: Laboratory Results - last 24 hr 05/09/16 05/09/16 04:50 04:50 WBC 6.6 RBC 4.10 L Hgb 12.5 Hct 37.5 MCV 92 MCH 30.5 MCHC 33.3 RDW 14.0 Plt Count 181 MPV 7.7 Sodium 138 Potassium 3.9 Chloride 105 Carbon Dioxide 27 Anion Gap 10 BUN 17 Creatinine 0.90 Estimated GFR (MDRD) > 60 Glucose 91 Calculated Osmolality 268 L Calcium 9.5
[2016-05-09 12:28] VITALS: PULSE 71
== END 2016-05-09 13:40 | disposition home health service (06) | DRG 310 ==
LOC: ED 14:10 → PCU 18:26
PROVIDERS: ADMIT Internal Medicine; ATTEND Hospitalist
DX: I48.92 Unspecified atrial flutter (principal); I10 Essential (primary) hypertension; I48.0 Paroxysmal atrial fibrillation; S20.219A Contusion of unspecified front wall of thorax, initial encounter; S00.03XA Contusion of scalp, initial encounter; W19.XXXA Unspecified fall, initial encounter; Y93.9 Activity, unspecified; Y92.009 Unspecified place in unspecified non-institutional (private) residence as the place of occurrence of the external cause; Z95.0 Presence of cardiac pacemaker; E78.00 Pure hypercholesterolemia, unspecified; M19.90 Unspecified osteoarthritis, unspecified site; Z79.899 Other long term (current) drug therapy; Z79.02 Long term (current) use of antithrombotics/antiplatelets; Z88.2 Allergy status to sulfonamides
CPT/HCPCS: 36415; 70450; 71010; 80048; 80053; 80162; 80307; 81001; 83735; 83880; 84484; 85025; 85027; 85610; 85730; 90732; 93005; 97162; 99283; G0237; J3490